=== PATIENT | female | born 1950 | race Caucasian/White ===

== ENCOUNTER 2021-09-16 10:02 | Emergency (ER) | payer OTHER, SELFPAY ==
[2021-09-16] MEDS ORDERED: Ibuprofen 200 MG TAB ONE (11:48)
== END 2021-09-16 11:50 | disposition home or self-care (01) ==
LOC: BURERS 10:02
DX: S09.90XA Unspecified injury of head, initial encounter (principal); W01.198A Fall on same level from slipping, tripping and stumbling with subsequent striking against other object, initial encounter; Z85.3 Personal history of malignant neoplasm of breast; Z79.899 Other long term (current) drug therapy
CPT/HCPCS: 70450; 71045

== ENCOUNTER 2024-06-13 16:02 | Emergency (ER) | payer MEDICARE, OTHER ==
[2024-06-13] MEDS ORDERED: Boostrix 0.5 ML (Tdap) VIAL (>/=7 yrs of age) ONE (16:58)
== END 2024-06-13 17:04 | disposition home or self-care (01) ==
LOC: BURERS 16:02
DX: S09.90XA Unspecified injury of head, initial encounter (principal); S50.312A Abrasion of left elbow, initial encounter; S50.311A Abrasion of right elbow, initial encounter; W01.198A Fall on same level from slipping, tripping and stumbling with subsequent striking against other object, initial encounter
CPT/HCPCS: 70450; 90471; 90715